=== PATIENT | male | born 1985 | race African-American/Black ===

== ENCOUNTER 2020-07-22 05:59 | Outpatient (REF) | payer BC, MEDICAID, SELFPAY | END 2020-07-22 06:00 | disposition home or self-care (01) | LOC: HO.LAB 05:59 | PROVIDERS: Visit Provider Internal Medicine | DX: Z20.822 Contact with and (suspected) exposure to COVID-19 (principal) | CPT/HCPCS: 36415; C9803; U0003 ==

== ENCOUNTER 2020-07-27 05:48 | Outpatient (REF) | payer BC, MEDICAID, SELFPAY | END 2020-07-27 05:49 | disposition home or self-care (01) | LOC: HO.LAB 05:48 | PROVIDERS: Visit Provider Internal Medicine | DX: Z20.822 Contact with and (suspected) exposure to COVID-19 (principal) | CPT/HCPCS: 36415; C9803; U0003 ==

== ENCOUNTER 2020-07-29 05:48 | Emergency (ER) | payer BC, MEDICAID, SELFPAY ==
--- NOTE | 2020-07-29 | XR_ITS ---
EXAMINATION: XR SHOULDER, RIGHT CLINICAL INFORMATION: Fall, shoulder injury COMPARISON: None TECHNIQUE: Four views of the right shoulder. FINDINGS: Glenohumeral alignment is anatomic. No acute fracture is seen. The acromioclavicular joint appears slightly widened. XR/XR shoulder RT min 2V IMPRESSION: Slightly widened appearance of the acromioclavicular joint, which could be chronic or could represent mild AC joint injury in the proper clinical setting. No fracture identified.
[2020-07-29 05:51] VITALS: BP 137/87; PULSE 58; RESP 16; TEMP 36.8; O2SAT 98; BMI 29.8
[2020-07-29 06:16] VITALS: BP 142/77; PULSE 57; RESP 16; TEMP 36.7; O2SAT 98
--- NOTE | 2020-07-29 06:19 | ED_ITS ---
HPI - Extremity Problem General Chief complaint: Extremity Injury, Upper Stated complaint: Shoulder pain/Fall Time Seen by Provider: 07/29/20 06:19 Source: patient Mode of arrival: ambulatory Limitations: no limitations History of Present Illness HPI Narrative: 34-year-old male who is left-handed fell 2 steps of stairs 2 days ago landed on his right shoulder, patient is able to move his shoulder but with pain only when he raises his right arm above his head, patient works for [employer] and get to carry boxes. Patient has no pain as long as he is not moving his shoulder. Related Data Allergies Allergy/AdvReac Type Severity Reaction Status Date / Time No Known Allergies Allergy Unverified 03/19/20 18:43 [No Known Allergies*] Review of Systems Review of Systems: All other systems are reviewed and are negative Constitutional: Reports as per HPI and Reports no additional constitutional complaints Eyes: Reports as per HPI and Reports no additional eye complaints Reports system reviewed and no additional complaints, except as documented Cardiovascular: Reports as per HPI and Reports no additional cardiovascular complaints Respiratory: Reports as per HPI and Reports no additional respiratory complaints Gastrointestinal: Reports as per HPI and Reports no additional gastrointestinal complaints Genitourinary: Reports no additional female genitourinary complaints Musculoskeletal: Reports no additional musculoskeletal complaints Skin/Breast: Reports system reviewed and no additional complaints, except as docu Psychiatric: Reports no additional psychiatric complaints Endocrine: Reports no additional endocrine complaints Hematologic/Lymphatic: Reports no additional hematologic/lymphatic complaints Allergic/Immunologic: Reports no additional allergic/immunologic complaints Reports system reviewed and no additional complaints, except as documented and Reports Abnormal speech present [facility] Past Medical History Medical History No known health problems Social History Social History Alcohol intake: current Alcohol intake frequency: a few times a month Smoking Status: Light tobacco smoker Smoked in Last 30 Days: Yes Use of substances other than those prescribed or required for medical reasons: No Advance Directives: No Physical Exam Vital Signs: Vital Signs: Last Vital Signs Temp 98.2 F 07/29/20 05:51 Pulse 58 07/29/20 05:51 Resp 16 07/29/20 05:51 BP 137/87 07/29/20 05:51 Pulse Ox 98 01/27/21 05:51 Body Mass Index 29.8 Vital signs have been reviewed as normal and appeared to be correct. Blood pressure is high. Heart rate normal. Respiration rate normal. Temperature normal. Oxygen saturation normal. Appearance: Alert. Oriented X3. No acute distress. Head: Normal external exam. Normocephalic. Atraumatic. No Damon signs noted. No raccoon eyes noted Eyes: PERRLA. EOMI. Conjunctiva and sclera normal. Eyelids normal. ENT: EAC normal. TM's Normal. Pharynx normal. Uvula midline. Moist mucous membranes. No trismus noted. No drooling noted. No muffled voice noted. Neck: Normal inspection. Neck supple. FROM. No adenopathy. Thyroid Normal. No meningeal signs. No neck mass noted. CVS: Normal heart rate and rhythm. Heart sound normal. No murmurs noted. Pulses normal throughout. Respiratory: No respiratory distress. Painless inspiration. Breath sounds normal. No wheezes/rales/rhonchi noted. Chest nontender. No accessory muscle usage noted or decreased air movement noted. Abdomen: Soft and nontender. Bowel sounds normal in all 4 quadrants. No distention noted. No organomegaly noted. No visible injury noted. Back: No CVA tenderness. Full range of motion noted. Skin: Skin warm and dry. Normal skin color. Normal skin turgor. No rashes/lesions/lacerations noted. Extremities: Left shoulder exam: Normal inspection, no deformity, held in abduction position, tender abduction above 30 degree, no tenderness to touch, neurovascularly intact on the left upper extremities. With cap refill less than 2 seconds. Neuro: Oriented X 3. No motor deficit. No sensory deficit. Reflexes normal. Course Course Course Narrative: Right shoulder injury 2 days ago, mild right AC separation, start the patient on sling, NSAIDs, follow up with Ortho. MDM - Extremity (Nontraumatic) Imaging Data Right shoulder x-ray: Radiologist's impression: Slightly widened appearance of the acromioclavicular joint, which could be chronic or could represent mild AC joint injury in the proper clinical setting. No fracture identified. Discharge Plan Discharge Clinical Impression: Acromioclavicular joint separation Patient Disposition: Home, Self-Care Instructions: Acromioclavicular Separation (ED) Additional Instructions: Take amqq-nsp-necmlzy ibuprofen 200 mg tablet every 6 hours if needed for pain. Referrals: Andre Grant MD [Physician] - 2 days
== END 2020-07-29 07:00 | disposition home or self-care (01) ==
PROVIDERS: Emergency Provider Emergency Medicine
DX: S43.101A Unspecified dislocation of right acromioclavicular joint, initial encounter (principal); M25.511 Pain in right shoulder; W18.30XA Fall on same level, unspecified, initial encounter; Y93.9 Activity, unspecified; Y92.9 Unspecified place or not applicable; Y99.9 Unspecified external cause status; F17.200 Nicotine dependence, unspecified, uncomplicated; Z71.6 Tobacco abuse counseling
CPT/HCPCS: 73030; 99283; 99284

== ENCOUNTER 2020-08-02 09:48 | Emergency (ER) | payer BC, MEDICAID, SELFPAY ==
--- NOTE | 2020-08-02 09:53 | ECG_ITS ---
Test Reason : SOB Blood Pressure : / mmHG Vent. Rate : 063 BPM Atrial Rate : 063 BPM P-R Int : 130 ms QRS Dur : 088 ms QT Int : 354 ms P-R-T Axes : 030 045 018 degrees QTc Int : 362 ms Normal sinus rhythm Early repolarization Normal ECG No previous ECGs available Referred By: Raghav Garcia Electronically Signed By:DEMETRIO JOHNSON MD
--- NOTE | 2020-08-02 09:57 | ED.CHESTPAIN ---
HPI - Chest Pain General Chief Complaint: Chest Pain Stated Complaint: CHEST PAIN Time Seen by Provider: 08/02/20 09:56 Source: patient Mode of arrival: ambulatory Limitations: no limitations History of Present Illness HPI narrative: Otherwise healthy 34-year-old male who presents with complaint of right-sided chest wall pain. States he was seen here 3 days ago he fell onto his right shoulder from a slip and fall and injured his right AC he is in a sling states at this time he denies any pain and several hours later he started having pain on the right-sided chest that is worse with palpation and movement. Prior episodes: No Pain location: right chest Pain radiation: none Severity: mild Quality: aching Context: trauma/injury (Two days ago fell onto the right shoulder and chest area) Treatment prior to arrival: none Related Data Previous Rx's Medication Instructions Recorded cyclobenzaprine 5 mg PO TID PRN #14 tab 08/02/20 lidocaine 1 patch TOPICAL Q24H PRN #10 ea 08/02/20 Allergies Allergy/AdvReac Type Severity Reaction Status Date / Time No Known Allergies Allergy Verified 08/02/20 10:17 [No Known Allergies*] Review of Systems Review of Systems: Constitutional: No Weight loss, No Fever, No Chills, No Night Sweats, No Fatigue, No Malaise ENT/Mouth: No Hearing loss, No Ear Pain, No Nasal Congestion, No Sinus Pain, No Hoarseness, No sore throat, No Rhinorrhea, No Swallowing Difficulty Eyes: No Eye Pain, No Swelling, No Redness, No Foreign Body, No Discharge, No Vision Changes Cardiovascular: No SOB, No Dyspnea on Exertion, No Orthopnea, No Edema, No Palpitations Respiratory: No Cough, No Sputum, No Wheezing, No Smoke Exposure, No Dyspnea Gastrointestinal: No Nausea, No Vomiting, No Diarrhea, No Constipation, No abdominal Pain, No Hematochezia, No Melena Genitourinary: No Dysuria, No Urinary Frequency, No Hematuria, No Urinary Incontinence, No Urgency, No Flank Pain Musculoskeletal: No joint pain, No Myalgias, No Joint Swelling, right-sided chest wall pain Skin: No Skin Lesions, No rash Neuro: No Weakness, No Numbness, No Paresthesias, No Loss of Consciousness, No Dizziness, No Headache Psych: No Social Issues Heme/Lymph: No Bruising, No Bleeding,No Lymphadenopathy Endocrine: No Polyuria, No Polydipsia, No Temperature Intolerance Yes all other systems are reviewed and are negative [facility] Past Medical History Medical History No known health problems Social History Social History Alcohol intake: current Alcohol intake frequency: a few times a month Smoking Status: Light tobacco smoker Advance Directives: No Advance Directives Information Provided: No Physical Exam Vital Signs: Vital Signs: Last Vital Signs Temp 98.6 F 08/02/20 10:16 Pulse 60 08/02/20 10:16 Resp 16 08/02/20 10:16 BP 136/74 08/02/20 10:16 Pulse Ox 99 08/02/20 10:16 Body Mass Index 28.5 Reviewed Const: General: cooperative and healthy appearing; No acute distress or intoxicated appearing Nutritional Appearance: average body habitus Orientation/consciousness: patient oriented x3 HENMT: Head: Yes normal to inspection Ears: hearing grossly normal bilaterally Eyes: General: appearance normal, both eyes and all related structures Visual Kidd: normal visual kidd by confrontation Neck: Neck: Yes normal visual inspection, No positive Brudzinski's sign, No positive Kernig's sign and No tender Thyroid: Thyroid normal Chest: Chest palpation & inspection: normal inspection of the chest, no crepitus and tenderness (Right-sided lateral chest) Resp: Effort & Inspection: normal respiratory effort Cardio: Jugular venous distension: no JVD GI: Inspection: Yes normal to inspection Percussion: Yes normal to percussion Auscultation: normal bowel sounds : General: Yes no CVA tenderness Back/Spine/Pelvis: Back: no CVA tenderness Skin: General skin exam: no rashes or lesions noted Neuro: General: patient oriented x3 Extrem: General: Yes normal to inspection MDM - Chest Pain MDM Narrative Medical decision making narrative: Well nontoxic appearing. AP exam consistent with contusions likes injury to the right upper chest wall. Rib series with PA negative. He has a shoulder sling for his right shoulder injury plans for follow-up with Orthopedics. Stable for discharge. Differential Diagnosis Differential diagnosis: Likely fracture of rib and costochondritis; Unlikely pneumothorax, stable angina, unstable angina pectoris, atypical chest pain, st elevation myocardial infarction, chest pain and biliary colic Imaging Data Right-sided rib with PA chest: Radiologist's impression: [id number] [place], [place] [id number] ReportSigned Patient: Travis Rodriguez#: [id number]: 1985Acct:[id number]/Sex: 34 / MADM Date: 08/02/20Loc: HO.EDAttending Dr: Ordering Physician: Raghav Garcia NP Date of Service: 08/02/20 Procedure(s): XR ribs RT min 3V w CXR1V Accession Number(s): [id number] cc: Raghav Garcia LOGISTICS ENGINEER~ EXAMINATION: XR RIBS, RIGHT CLINICAL INFORMATION: Status post fall COMPARISON: None TECHNIQUE: 3 views of the right ribs were obtained. Chest one view. FINDINGS: Lungs are clear. No consolidation, pneumothorax, or pleural effusion. The cardiomediastinal silhouette and pulmonary vasculature are normal. Osseous structures are unremarkable. Ribs are intact. No fractures are identified. XR/XR ribs RT min 3V w CXR1V IMPRESSION: Unremarkable chest examination. Dictated By:TAN ARIAS MDSigned By:<Electronically signed by TAN ARIAS MD in OV>08/02/20 1037 DD/ [id number]/TT: Advertising Account Manager: [facility] [place] ECG Data ECG #1: Interpretation: Normal sinus rhythm Rate 63 MN interval within normal limits No acute ST segment changes No previous Discharge Plan Discharge Clinical Impression: Chest wall contusion Patient Disposition: Home, Self-Care Instructions: Rib Contusion (ED) Additional Instructions: Warm compresses Take ibuprofen as prescribed Muscle relaxant as prescribed; no drinking alcohol or driving as this medication can make you sleepy and drowsy Gentle stretching Follow-up with the orthopedics as discussed for your shoulder Return if any concerns or worsening symptoms Thank you Prescriptions: New cyclobenzaprine 5 mg tablet 5 mg PO TID PRN (Reason: muscle spasm) Qty: 14 RF: 0 lidocaine 4 % adhesive patch,medicated 1 patch topical Q24H PRN (Reason: pain) Qty: 10 RF: 0 Referrals: Cate Bai MD [Physician] - 5 days Interventions: ED Discharge Assessment Last Done: 08/02/20 12:09 Discharge Date/Time: 08/02/20 12:11
[2020-08-02 10:16] VITALS: BP 136/74; PULSE 60; RESP 16; TEMP 37; O2SAT 99; BMI 28.5
== END 2020-08-02 12:11 | disposition home or self-care (01) ==
PROVIDERS: Emergency Provider Emergency Medicine
DX: S20.211A Contusion of right front wall of thorax, initial encounter (principal); R07.89 Other chest pain; F17.200 Nicotine dependence, unspecified, uncomplicated; W01.0XXA Fall on same level from slipping, tripping and stumbling without subsequent striking against object, initial encounter; Y93.9 Activity, unspecified; Y92.9 Unspecified place or not applicable; Y99.9 Unspecified external cause status; Z71.6 Tobacco abuse counseling; Z79.899 Other long term (current) drug therapy
CPT/HCPCS: 71101; 93005; 99283

== ENCOUNTER 2020-08-05 05:49 | Outpatient (REF) | payer BC, MEDICAID, SELFPAY | END 2020-08-05 05:50 | disposition home or self-care (01) | LOC: HO.LAB 05:49 | PROVIDERS: Visit Provider Internal Medicine | DX: Z20.822 Contact with and (suspected) exposure to COVID-19 (principal) | CPT/HCPCS: 36415; C9803; U0003; U0005 ==

== ENCOUNTER 2020-08-15 10:10 | Outpatient (REF) | payer BC, MEDICAID, SELFPAY | END 2020-08-15 10:11 | disposition home or self-care (01) | LOC: HO.LAB 10:10 | PROVIDERS: Visit Provider Internal Medicine | DX: Z20.822 Contact with and (suspected) exposure to COVID-19 (principal) | CPT/HCPCS: 36415; C9803; U0003; U0005 ==

== ENCOUNTER 2020-08-27 | Outpatient (REF) | payer BC, MEDICAID, SELFPAY ==
[2020-08-28 14:27] LABS: H Pylori Breath Test NOT DETECTED (NOT DETECTED)
== END 2020-08-27 00:01 | disposition home or self-care (01) ==
LOC: HO.LNP
PROVIDERS: Visit Provider Internal Medicine Gastroenterology
DX: Z11.0 Encounter for screening for intestinal infectious diseases (principal)
CPT/HCPCS: 83013

== ENCOUNTER → 2020-08-27 09:47 | Outpatient (BNVA) | payer BC, MEDICAID, SELFPAY | PROVIDERS: Visit Provider Internal Medicine Gastroenterology ==

== ENCOUNTER → 2020-10-06 09:58 | Outpatient (REF) | payer BC, MEDICAID, SELFPAY | LOC: HO.SL 09:58 | PROVIDERS: PCP Internal Medicine; Visit Provider Internal Medicine | DX: G47.33 Obstructive sleep apnea (adult) (pediatric) (principal); R06.83 Snoring; R40.0 Somnolence | CPT/HCPCS: 95806 ==

== ENCOUNTER 2020-10-30 08:27 | Outpatient (REF) | payer BC, MEDICAID, SELFPAY ==
[2020-10-30 11:13] LABS: MANUAL DIFF FLAG NO
[2020-10-30 11:39] LABS: Basophils Absolute Auto 0.1 X10*3/uL (0.0-0.2); Basophils Percent Auto 0.8 % (0-2); Eosinophils Absolute Auto 0.4 X10*3/uL (0.0-0.4); Eosinophils Percent Auto 5.7 % (0-4); Hematocrit 45.4 % (42-52); Imm Gran Abs Auto 0.02 X10*3/uL (0.00-0.03); Imm Gran Pct Auto 0.3 % (0.0-0.4); Lymphocytes Absolute Auto 2.7 X10*3/uL (1.2-4.9); Lymphocytes Percent Auto 41.9 % (20-40); Mean Corpuscular HGB Conc 30.8 g/dl (31.0-36.0); Mean Corpuscular Hemoglobin 25.2 pg (27.0-33.0); Mean Corpuscular Volume 81.8 fL (80-98); Mean Platelet Volume 10.7 fL (9.4-12.4); Monocytes Absolute Auto 0.7 X10*3/uL (0.1-1.2); Monocytes Percent Auto 11.2 % (2-11); Neutrophils Absolute Auto 2.6 X10*3/uL (2.0-8.3); Neutrophils Percent Auto 40.1 % (45-73); Platelet Count 282 X10*3/uL (160-400); Red Blood Count 5.55 X10*6/uL (4.60-5.80); Red Cell Distribution Width 16.1 % (11.0-16.0); White Blood Count 6.5 X10*3/uL (4.8-10.8)
[2020-10-30 11:59] LABS: Alanine Aminotransferase 14 U/L (0-40); Albumin Level 4.4 g/dL (3.5-5.0); Alkaline Phosphatase 65 U/L (39-117); Anion Gap 13 (12-20); Aspartate Amino Transferase 20 U/L (5-37); Bilirubin Total 1.5 mg/dL (0.0-1.0); Blood Urea Nitrogen 15 mg/dL (9-16); Calcium 9.6 mg/dL (8.4-10.2); Carbon Dioxide 28 mmol/L (22-29); Chloride 106 mmol/L (96-108); Cholesterol 125 mg/dL; Estimated Glomerular Filt Rate > 60; Glucose Fasting 95 mg/dL (60-99); HDL Cholesterol 43 mg/dL; LDL Cholesterol Calculated 74 mg/dl; Potassium 4.5 mmol/L (3.3-5.1); Sodium 142 mmol/L (135-145); Thyroid Stimulating Hormone 0.29 uIU/mL (0.32-4.0); Total Protein 7.1 g/dL (6.5-8.0); Triglycerides 40 mg/dL
== END 2020-10-30 08:28 | disposition home or self-care (01) ==
LOC: HO.LAB 08:27
PROVIDERS: PCP Internal Medicine; Visit Provider Internal Medicine
DX: Z00.00 Encounter for general adult medical examination without abnormal findings (principal); E03.9 Hypothyroidism, unspecified; E11.9 Type 2 diabetes mellitus without complications
CPT/HCPCS: 36415; 80053; 80061; 84443; 85025

== ENCOUNTER 2021-07-05 09:11 | Outpatient (REF) | payer MEDICAID, SELFPAY ==
[2021-07-05 10:03] LABS: COVID-19 Test Positive (Negative); IDNOW Serial# 55D5AD1C
== END 2021-07-05 09:12 | disposition home or self-care (01) ==
LOC: HO.LAB 09:11
PROVIDERS: Visit Provider Internal Medicine
DX: Z20.822 Contact with and (suspected) exposure to COVID-19 (principal)
CPT/HCPCS: 36415; 87635; C9803

== ENCOUNTER 2021-07-13 07:59 | Outpatient (REF) | payer MEDICAID, SELFPAY ==
[2021-07-13 09:07] LABS: Binax Internal Control QC Valid; Binax Now Covid-19 Ag Negative (Negative)
== END 2021-07-13 08:00 | disposition home or self-care (01) ==
LOC: HO.LAB 07:59
PROVIDERS: Visit Provider Internal Medicine
DX: Z20.822 Contact with and (suspected) exposure to COVID-19 (principal)
CPT/HCPCS: C9803

== ENCOUNTER 2022-05-13 10:36 | Outpatient (REF) | payer OTHER, SELFPAY ==
[2022-05-13 10:48] LABS: MANUAL DIFF FLAG NO
[2022-05-13 10:56] LABS: Basophils Absolute Auto 0.1 X10*3/uL (0.0-0.2); Eosinophils Absolute Auto 0.2 X10*3/uL (0.0-0.4); Eosinophils Percent Auto 3.8 % (0-4); Hematocrit 50.6 % (42.0-52.0); Lymphocytes Absolute Auto 2.3 X10*3/uL (1.2-4.9); Lymphocytes Percent Auto 39.9 % (20-40); Mean Corpuscular HGB Conc 33.6 g/dl (31.0-36.0); Mean Corpuscular Volume 86.2 fL (80.0-98.0); Monocytes Absolute Auto 0.6 X10*3/uL (0.1-1.2); Monocytes Percent Auto 9.5 % (2-11); Neutrophils Absolute Auto 2.7 x10*3/uL (2.0-8.3); Neutrophils Percent Auto 45.8 % (45-73); Platelet Count 209 X10*3/uL (160-400); Red Blood Count 5.87 X10*6/uL (4.60-5.80); Red Cell Distribution Width 12.9 % (11.0-16.0); White Blood Count 5.8 X10*3/uL (4.8-10.8)
[2022-05-13 11:25] LABS: Alanine Aminotransferase 17 U/L (0-40); Albumin Level 4.5 g/dL (3.5-5.0); Alkaline Phosphatase 56 U/L (39-117); Anion Gap 13 (12-20); Aspartate Amino Transferase 18 U/L (5-37); Bilirubin Total 1.9 mg/dL (0.0-1.0); Blood Urea Nitrogen 14 mg/dL (9-16); Calcium 9.7 mg/dL (8.4-10.2); Carbon Dioxide 28 mmol/L (22-29); Chloride 101 mmol/L (96-108); Cholesterol 119 mg/dL; Estimated Glomerular Filt Rate > 60; Glucose Fasting 98 mg/dL (60-99); HDL Cholesterol 41 mg/dL; LDL Cholesterol Calculated 70 mg/dl; Potassium 4.2 mmol/L (3.3-5.1); Sodium 138 mmol/L (135-145); Total Protein 7.2 g/dL (6.5-8.0); Triglycerides 44 mg/dL
[2022-05-13 11:48] LABS: Thyroid Stimulating Hormone 0.34 uIU/mL (0.32-4.0)
== END 2022-05-13 10:37 | disposition home or self-care (01) ==
LOC: HO.LAB 10:36
PROVIDERS: Visit Provider Internal Medicine
DX: Z13.0 Encounter for screening for diseases of the blood and blood-forming organs and certain disorders involving the immune mechanism (principal); E03.9 Hypothyroidism, unspecified; E78.5 Hyperlipidemia, unspecified; I10 Essential (primary) hypertension
CPT/HCPCS: 36415; 80053; 80061; 84443; 85025

== ENCOUNTER 2023-03-17 13:33 | Outpatient (AMB) | payer OTHER, SELFPAY ==
--- NOTE | 2023-03-17 13:34 | MHC.PC.OV ---
Vital Signs 03/17/23 13:35 Height 5 ft 11 in Weight 211 lb BMI 29.4 BP 112/68 Blood Pressure Location Lt brachial Position Sitting Pulse 63 Pulse Source Pulse Oximeter Pulse Oximetry (%) 98 Oxygen Delivery Method Room Air Intake Visit Reasons: PE Primary Teacher Required: No Web Page Developer: Not Required per policy Accompanied by: Self / Same As Patient Allergies No Known Allergies [No Known Allergies*] Allergy (Verified 03/17/23 13:35) Medication List - Last Reconciled 03/20/23 by Carroll Ozuna MD omeprazole 20 mg PO DAILY Tobacco use date assessed: 03/17/23 Dental Screening Dental Screen Date: 03/17/23 Did you have a dental visit in the last 12 months?: Yes Did you have a dental problem in the last 6 months where you did not have access to dental care?: No Was dental information given to patient?: Patient has dentist HPI PE HPI Details gerd on rx; doing well PFSH Medical History No known health problems Surgical History No history of previous surgery Family History Mother No problems noted. Father No problems noted. Social History Housing: House Alcohol intake: current Alcohol intake frequency: holidays/special occasions only Patient Tobacco Use Status: Current someday Tobacco user Tobacco use type: Cigarette Cigarettes Per Day: 3 e-Cigarette/Vaping Use: Never Used Second Hand Smoke Exposure: No service: No Current occupational status: employed Cognitive needs: No Hearing needs: No Vision needs: No Questionnaire PHQ-9 Over the last 2 weeks, how often have you been bothered by any of the following problems? 1. Little interest or pleasure in doing things: not at all 2. Feeling down, depressed, or hopeless: not at all 3. Trouble falling or staying asleep, or sleeping too much: not at all 4. Feeling tired or having little energy: not at all 5. Poor appetite or overeating: not at all 6. Feeling bad about yourself - or that you are a failure or have let yourself or your family down: not at all 7. Trouble concentrating on things, such as reading the newspaper or watching television: not at all 8. Moving or speaking so slowly that other people could have noticed. Or the opposite - being so fidgety or restless that you have been moving around a lot more than usual: not at all 9. Thoughts that you would be better off or of hurting yourself in some way: not at all Total score: 0 Depression Screening Interpretation: Negative 77181 - PHQ-9 Billing: Yes Source: Developed by Drs. Jefry Lazo, Crystal Kim, Vj Tony and colleagues, with an educational mary from [employer]. Thrive Questionnaire Date Thrive assessed: 03/17/23 I am a: Patient What is your living situation today?: I have a steady place to live Within the past 12 months, did the food you bought not last and you didn't have the money to get more?: Never true Within the past 12 months, did you worry whether your food would run out before you got money to buy more?: Never true Do you have trouble paying for medicines?: No Do you have trouble getting transportation to medical appointments?: No Do you have trouble paying your heating and electricity bill?: No Do you have trouble taking care of your child, family member or friend?: No Do you have trouble with day-to-day activities such as bathing, preparing meals, shopping, managing finances, etc.?: No Are you currently unemployed and looking for a job?: No Are you interested in more education?: No Please select the resources that you would like help with: None AUDIT C Alcohol Use Questionnaire (AUDIT-C) 1. How often do you have a drink containing alcohol?: Monthly or less 2. How many drinks containing alcohol do you have on a typical day when you are drinking?: 1 or 2 3. How often do you have six or more drinks on one occasion?: Never Total Score: 1 Score Reviewed/Action Taken: Yes BETO-7 AMB Questionnaire BETO-7 Date BETO - 7 assessed: 03/17/23 Feeling nervous, anxious, or on edge: 0 = Not at all Not being able to stop or control worryin = Not at all Worrying too much about different things: 0 = Not at all Trouble relaxin = Not at all Being so restless that it is hard to sit still: 0 = Not at all Becoming easily annoyed or irritable: 0 = Not at all Feeling afraid as if something awful might happen: 0 = Not at all Total BETO-7 score (0-4 normal; 5-9 mild; 10-14 moderate; 15-21 severe): 0 Source: Developed by Drs. Jefry Lazo, Crystal Kim, Vj Tony and colleagues, with an educational mary from [employer]. BETO-7 Assessment Billing BETO-7 Assessment Tool: BETO-7 Assessment 12417 Review of Systems Const Denies chills, Denies fatigue, Denies headache(s) and Denies weight loss Eyes Denies change in vision, Denies diplopia and Denies eye pain ENT Denies vertigo, Denies dizziness, Denies headache(s) and Denies nasal discharge Card Denies chest pain, Denies rapid heart rate and Denies dyspnea on exertion Resp Denies chest congestion, Denies cough, Denies pain with cough and Denies dyspnea on exertion GI Denies abdominal pain, Denies hematochezia and Denies change in bowel habits Musc Denies myalgias, Denies arthralgias and Denies joint swelling Skin/Breast Denies lesions and Denies unusual bruising Neuro Denies vertigo, Denies dizziness, Denies headache(s) and Denies focal weakness Endo Denies fatigue Physical exam (Primary Care) Vital Signs: Last Vital Signs Pulse 63 03/17/23 13:35 BP 112/68 03/17/23 13:35 Pulse Ox 98 03/17/23 13:35 Oxygen Delivery Method Room Air 03/17/23 13:35 BMI result Body Mass Index 29.4 Tobacco/Smoking Status: Tobacco use Status Tobacco use date assessed 03/17/23 03/17/23 13:40 Patient Tobacco Use Status Current someday Tobacco 03/17/23 13:40 Tobacco use type Cigarette 03/17/23 13:40 e-Cigarette/Vaping Use Never Used 03/17/23 13:40 PHQ-9: PHQ-9 Score PHQ-9: Total score 0 03/17/23 13:40 Depression Screening Interpretation: Negative Thrive Assessment: Date of Thrive Assessment Date Thrive assessed 03/17/23 03/17/23 13:40 Const General: cooperative, healthy appearing and no acute distress Orientation/consciousness: oriented to person, oriented to place and oriented to time HENMT Head: Yes normal to inspection, Yes normocephalic and Yes atraumatic Mouth: Normal oral and palatal mucosa present and tongue normal Throat: Yes posterior oropharynx normal and Yes uvula midline Eyes General: appearance normal, both eyes and all related structures Neck Neck: Yes normal visual inspection, Yes full ROM and Yes no lymphadenopathy Thyroid: Thyroid normal Carotids: normal carotid upstroke Chest Chest palpation & inspection: normal inspection of the chest Resp Effort & Inspection: normal respiratory effort and able to speak in complete sentences Auscultation: clear to auscultation bilaterally Cardio Jugular venous distension: no JVD Palpation: normal PMI Rate: regular rate Rhythm: regular rhythm Heart sounds: S1 normal heart sound present and S2 normal heart sound present GI Inspection: Yes normal to inspection Palpation (GI): Soft to palpation and No hepatosplenomegaly present Auscultation: normal bowel sounds General: Yes no CVA tenderness Back/Spine/Pelvis Back: no CVA tenderness Skin General skin exam: no rashes or lesions noted Neuro General: oriented to person, oriented to place and oriented to time Extrem General: Yes normal to inspection and Yes full ROM Assessment and Plan Assessment & Plan (1) Physical exam: Code(s): Z00.00 - Encounter for general adult medical examination without abnormal findings Plan: do labs Orders: Orders Lipid Panel 03/17/23 E78.5 - Hyperlipidemia, unspecified Complete Blood Count Auto Diff 03/17/23 D64.9 - Anemia, unspecified Comprehensive [place]. Panel Fast 03/17/23 N28.9 - Disorder of kidney and ureter, unspecified Medications: New omeprazole 20 mg PO DAILY 90 tabs 8RF Coding Level of Care Code Est Pt Prev Care 18-39y(41330) Diagnoses Physical exam Z00.00 Additional Codes BETO-7 Assessment Billing - BETO-7 Assessment Tool: BETO-7 Assessment 52606 ([id number])
[2023-03-17 13:35] VITALS: BP 112/68; PULSE 63; O2SAT 98; BMI 29.4
--- OUTSIDE RECORDS SUMMARY | 2023-03-17 13:35 | XMS_ITS | Patient Health Record ---
Author Name Unknown Organization [facility] Address [address] [place] [address] [phone] Care Team Providers Care Air Tool Operator Name Role Phone [facility], Nursing Unavailable [phone] ENCOUNTERS from 1985 to 2023-03-17 Encounter Location Date Provider Diagnosis [facility] [address] [place] [address] [phone] Aug, Nursing [facility] SOCIAL HISTORY Sex Assigned At : Social History Observation Description Sex Assigned At Unknown REASON FOR REFERRAL No Information REASON FOR VISIT No Information MENTAL STATUS No Information PLAN OF TREATMENT No Information
== END 2023-03-17 14:28 | disposition home or self-care (01) ==
PROVIDERS: PCP Internal Medicine; Visit Provider Internal Medicine
DX: Z00.00 Encounter for general adult medical examination without abnormal findings (principal)
CPT/HCPCS: 99395

== ENCOUNTER 2023-12-14 13:36 | Outpatient (AMB) | payer OTHER, SELFPAY ==
[2023-12-14 13:36] VITALS: BP 130/96; PULSE 76; O2SAT 98; BMI 27.1
--- NOTE | 2023-12-14 13:36 | A.OFFPC_ITS ---
Vital Signs 12/14/23 13:36 Height 5 ft 11 in Weight 194 lb 0.2 oz BMI 27.1 BP 130/96 H Blood Pressure Location Lt brachial Position Sitting Pulse 76 Pulse Source Pulse Oximeter Pulse Oximetry (%) 98 Oxygen Delivery Method Room Air Intake Visit Reasons: short tempered, adhd, difficulty focusing Poultryman Required: No Allergies No Known Allergies [No Known Allergies*] Allergy (Verified 12/14/23 13:37) Tobacco use date assessed: 12/14/23 Dental Screening Dental Screen Date: 03/17/23 HPI short tempered, adhd, difficulty focusing HPI Details treated for adhd as a child and feels he has it again; difficulty concentration, quick to anger, difficult holding a job PFSH Medical History No known health problems Surgical History No history of previous surgery Family History Mother No problems noted. Father No problems noted. Social History Housing: House Alcohol intake: current Alcohol intake frequency: holidays/special occasions only Patient Tobacco Use Status: Current someday Tobacco user Tobacco use type: Cigarette Cigarettes Per Day: 3 e-Cigarette/Vaping Use: Never Used Second Hand Smoke Exposure: No service: No Current occupational status: employed Cognitive needs: No Hearing needs: No Vision needs: No Questionnaire Thrive Questionnaire Date Thrive assessed: 03/17/23 BETO-7 AMB Questionnaire BETO-7 Date BETO - 7 assessed: 03/17/23 Source: Developed by Drs. Jefry Lazo, Crystal Kim, Vj Tony and colleagues, with an educational mary from [employer]. Review of Systems Const Denies chills, Denies headache(s) and Denies weight loss ENT Denies headache(s) Card Denies chest pain, Denies syncope, Denies irregular heart rhythm and Denies dyspnea Resp Denies chest congestion, Denies cough and Denies dyspnea GI Denies abdominal pain, Denies change in stool character, Denies nausea and Denies vomiting Musc Denies deformity and Denies joint swelling Neuro Denies syncope and Denies headache(s) Physical exam (Primary Care) Vital Signs: Last Vital Signs Pulse 76 12/14/23 13:36 BP 130/96 H 12/14/23 13:36 Pulse Ox 98 12/14/23 13:36 Oxygen Delivery Method Room Air 12/14/23 13:36 BMI result Body Mass Index 27.1 Tobacco/Smoking Status: Tobacco use Status Tobacco use date assessed 12/14/23 12/14/23 13:40 Patient Tobacco Use Status Current someday Tobacco 12/14/23 13:40 Tobacco use type Cigarette 12/14/23 13:40 e-Cigarette/Vaping Use Never Used 12/14/23 13:40 Thrive Assessment: Date of Thrive Assessment Date Thrive assessed 03/17/23 12/14/23 13:40 Const General: cooperative, comfortable, no acute distress and alert Neck Neck: Yes no lymphadenopathy Thyroid: Thyroid normal Resp Effort & Inspection: normal respiratory effort Auscultation: clear to auscultation bilaterally Percussion: percussion normal Cardio Jugular venous distension: no JVD Palpation: normal PMI Rate: regular rate Rhythm: regular rhythm Heart sounds: S1 normal heart sound present and S2 normal heart sound present GI Inspection: Yes normal to inspection Palpation (GI): No hepatosplenomegaly present Skin General skin exam: no rashes or lesions noted Extrem General: Yes no clubbing, cyanosis or edema Assessment and Plan Assessment & Plan (1) ADHD: Code(s): F90.9 - Attention-deficit hyperactivity disorder, unspecified type Plan: will ref to psych for diagnosis and rx options; seeking disability for this Orders: Referrals Psychiatry Outpatient Consultation Service F90.9 - Attention-deficit hyperactivity disorder, unspecified type Coding Level of Care Code Est Pt Level 3 (90916) Diagnoses ADHD F90.9
== END 2023-12-14 13:54 | disposition home or self-care (01) ==
PROVIDERS: PCP Internal Medicine; Visit Provider Internal Medicine
DX: F90.9 Attention-deficit hyperactivity disorder, unspecified type (principal)
CPT/HCPCS: 99213

== ENCOUNTER 2025-02-26 15:32 | Outpatient (AMB) | payer OTHER, SELFPAY ==
[2025-02-26 16:05] VITALS: BP 140/88; PULSE 74; TEMP 36.4; O2SAT 97; BMI 27.7
--- NOTE | 2025-02-26 16:05 | A.OFFPC_ITS ---
Vital Signs 02/26/25 16:05 Height 5 ft 11 in Weight 198 lb 8 oz BMI 27.7 BP 140/88 H Blood Pressure Location Lt brachial Position Sitting Pulse 74 Pulse Source Pulse Oximeter Temp 97.5 F Temp Source Temporal Artery Scan Pulse Oximetry (%) 97 Oxygen Delivery Method Room Air Intake Visit Reasons: BOY DR Rose Allergies No Known Allergies (No Known Allergies*) Allergy (Verified 02/26/25 16:33) Medication List - Last Reconciled 02/26/25 by Jonas Rose MD No Known Home Meds Tobacco use date assessed: 02/26/25 Dental Screening Dental Screen Date: 02/26/25 Did you have a dental visit in the last 12 months?: Yes Did you have a dental problem in the last 6 months where you did not have access to dental care?: No Was dental information given to patient?: Patient has dentist HPI BOY DR Rose HPI Details Patient comes in today for his follow-up visit - is transferring over from Dr. Ozuna, who retired from the practice a few months ago States that he feels okay and mainly needs to get a referral to see an eye doctor as his current prescription eyeglasses need to be updated Adds that Dr. Ozuna previously referred him somewhere to have him reassessed for his ADHD diagnosis but he has not heard back or received a call from anyone about an appointment being scheduled for him yet about this States that he would like to be referred to [facility], where he was going to see psychiatry before, to have his ADHD reevaluated and treated if necessary He denies any headaches or dizziness Denies any chest pains, no shortness of breath No nausea/vomiting, no abdominal pain No change in bowel habits noted [facility] [place] Medical History (Updated 02/27/25 @ 04:51 by Jonas Rose MD) Overweight (BMI 25.0-29.9) Smoker Hyperopia ADHD Surgical History No history of previous surgery Family History Mother No problems noted. Father No problems noted. Social History Housing: House Alcohol intake: current Alcohol intake frequency: holidays/special occasions only Patient Tobacco Use Status: Current someday Tobacco user Tobacco use type: Cigarette Cigarettes Per Day: 3 e-Cigarette/Vaping Use: Never Used Second Hand Smoke Exposure: No service: No Current occupational status: employed Cognitive needs: No Hearing needs: No Vision needs: Yes Questionnaire PHQ-9 Over the last 2 weeks, how often have you been bothered by any of the following problems? 1. Little interest or pleasure in doing things: not at all 2. Feeling down, depressed, or hopeless: more than half the days 3. Trouble falling or staying asleep, or sleeping too much: nearly every day 4. Feeling tired or having little energy: nearly every day 5. Poor appetite or overeating: nearly every day 6. Feeling bad about yourself - or that you are a failure or have let yourself or your family down: nearly every day 7. Trouble concentrating on things, such as reading the newspaper or watching television: not at all 8. Moving or speaking so slowly that other people could have noticed. Or the opposite - being so fidgety or restless that you have been moving around a lot more than usual: more than half the days 9. Thoughts that you would be better off or of hurting yourself in some way: not at all Total score: 16 Depression Screening Interpretation: Positive Depression Screening Follow-up: Follow-up Visit Requested Depression Screening Done: Yes [id number] - PHQ-9 Billing: Yes Source: Developed by Drs. Jefry Lazo, Crystal Kim, Vj Tony and colleagues, with an educational mary from [email or web address]. Thrive Questionnaire Date Thrive assessed: 02/26/25 I am a: Patient What is your living situation today?: I choose not to answer this question Within the past 12 months, did the food you bought not last and you didn't have the money to get more?: I choose not to answer this question Within the past 12 months, did you worry whether your food would run out before you got money to buy more?: I choose not to answer this question Do you have trouble paying for medicines?: No Do you have trouble getting transportation to medical appointments?: No Do you have trouble paying your heating and electricity bill?: I choose not to answer this question Do you have trouble taking care of your child, family member or friend?: Yes Do you have trouble with day-to-day activities such as bathing, preparing meals, shopping, managing finances, etc.?: No Are you currently unemployed and looking for a job?: Yes Are you interested in more education?: No Please select the resources that you would like help with: Housing/Snf Currently or been in a relationship where the following occur: I choose not to answer THRIVE Score: 0 AUDIT C Alcohol Use Questionnaire (AUDIT-C) 1. How often do you have a drink containing alcohol?: Monthly or less 2. How many drinks containing alcohol do you have on a typical day when you are drinking?: 1 or 2 3. How often do you have six or more drinks on one occasion?: Never Total Score: 1 Score Reviewed/Action Taken: Yes BETO-7 AMB Questionnaire BETO-7 Date BETO - 7 assessed: 02/26/25 Feeling nervous, anxious, or on edge: 2 = More than half the days Not being able to stop or control worryin = Nearly every day Worrying too much about different things: 3 = Nearly every day Trouble relaxin = Nearly every day Being so restless that it is hard to sit still: 3 = Nearly every day Becoming easily annoyed or irritable: 2 = More than half the days Feeling afraid as if something awful might happen: 2 = More than half the days Total BETO-7 score (0-4 normal; 5-9 mild; 10-14 moderate; 15-21 severe): 18 Source: Developed by Drs. Jefry Lazo, Crystal Kim, Vj Tony and colleagues, with an educational mary from [email or web address]. BETO-7 Assessment Billing BETO-7 Assessment Tool: BETO-7 Assessment 11593 Review of Systems Const Denies chills, Denies fatigue, Denies fever(s) and Denies headache(s) Eyes Reports change in vision (needs to have eyeglass prescription updated) ENT Denies dysphagia, Denies dizziness, Denies otalgia, Denies headache(s), Denies neck pain, Denies odynophagia and Denies sore throat Card Denies chest pain, Denies palpitations and Denies dyspnea Resp Denies cough and Denies dyspnea GI Denies abdominal pain, Denies constipation, Denies dysphagia, Denies heartburn, Denies diarrhea, Denies nausea, Denies odynophagia and Denies vomiting Denies difficulty urinating, Denies dysuria, Denies nocturia and Denies urinary frequency Musc Denies back pain and Denies neck pain Neuro Denies dizziness and Denies headache(s) Psych Reports difficulty concentrating Endo Denies fatigue and Denies palpitations Physical exam (Primary Care) Vital Signs: Last Vital Signs Temp 97.5 F 02/26/25 16:05 Pulse 74 02/26/25 16:05 BP 140/88 H 02/26/25 16:05 Pulse Ox 97 02/26/25 16:05 Oxygen Delivery Method Room Air 02/26/25 16:05 BMI result Body Mass Index 27.7 Tobacco/Smoking Status: Tobacco use Status Tobacco use date assessed 02/26/25 02/26/25 16:10 Patient Tobacco Use Status Current someday Tobacco 02/26/25 16:05 Tobacco use type Cigarette 02/26/25 16:05 e-Cigarette/Vaping Use Never Used 02/26/25 16:05 PHQ-9: PHQ-9 Score PHQ-9: Total score 16 02/26/25 16:41 Depression Screening Interpretation: Positive Depression Screening Follow-up: Follow-up Visit Requested Thrive Assessment: Date of Thrive Assessment Date Thrive assessed 02/26/25 02/26/25 16:10 Currently or been in a relationship where the following occur: I choose not to answer Const General: no acute distress and alert HENMT Throat: Yes posterior oropharynx normal and Yes tonsils normal (no TP congestion) Neck Neck: Yes supple and No lymphadenopathy Thyroid: Thyroid normal Resp Auscultation: clear to auscultation bilaterally, no rales and no wheezes Cardio Rate: regular rate Rhythm: regular rhythm Heart sounds: no murmurs GI Palpation (GI): Soft to palpation and nontender Auscultation: normal bowel sounds General: Yes no CVA tenderness Back/Spine/Pelvis Back: no CVA tenderness Thoracic/Lumbar Spine: No lumbar spinal tenderness Skin Rashes: no rashes Extrem General: Yes no clubbing, cyanosis or edema Coding Level of Care Code Est Pt Level 4 (55303) Diagnoses Hyperopia of both eyes H52.03 Laterality: bilateral Attention deficit hyperactivity disorder (ADHD), unspecified ADHD type F90.9 Attention deficit-hyperactivity disorder type: unspecified Smoker F17.200 Overweight (BMI 25.0-29.9) E66.3 Additional Codes BETO-7 Assessment Billing - BETO-7 Assessment Tool: BETO-7 Assessment 83737 ([id number]) PHQ-9 - 20924 - PHQ-9 Billing: Yes ([id number]) Assessment & Plan Assessment & Plan (1) Hyperopia: Code(s): H52.00 - Hypermetropia, unspecified eye Category: Medical Qualifiers: Laterality: bilateral Qualified Code(s): H52.03 - Hypermetropia, bilateral Plan: Will refer patient to ophthalmology for further evaluation and management (2) ADHD: Code(s): F90.9 - Attention-deficit hyperactivity disorder, unspecified type Category: Medical Qualifiers: Attention deficit-hyperactivity disorder type: unspecified Qualified Code(s): F90.9 - Attention-deficit hyperactivity disorder, unspecified type Plan: Will refer patient to psychiatry at [facility], per his request, for jerry ssessment/reevaluation of his ADHD (3) Smoker: Code(s): F17.200 - Nicotine dependence, unspecified, uncomplicated Category: Social Hx Plan: Patient is counseled on complete smoking cessation (4) Overweight (BMI 25.0-29.9): Code(s): E66.3 - Overweight Category: Medical Plan: Discussed diet/exercise as tolerated/lose weight Plan To return as scheduled in May 2025 for his annual physical examination Patient is instructed to try getting his labs done BEFORE he comes in for his annual exam Orders: Orders Comprehensive Micro. Panel Fast 05/17/25 E78.00 - Pure hypercholesterolemia, unspecified, Z00.00 - Encounter for general adult medical examination without abnormal findings Lipid Panel 05/17/25 E78.00 - Pure hypercholesterolemia, unspecified, Z00.00 - Encounter for general adult medical examination without abnormal findings UA CC w/rflx Micro + Cult 05/17/25 R30.0 - Dysuria, Z00.00 - Encounter for general adult medical examination without abnormal findings Complete Blood Count Auto Diff 05/17/25 D64.9 - Anemia, unspecified, Z00.00 - Encounter for general adult medical examination without abnormal findings TSH reflex Free T4 05/17/25 E78.00 - Pure hypercholesterolemia, unspecified, Z00.00 - Encounter for general adult medical examination without abnormal findings Vitamin D 25-OH Total 05/17/25 E55.9 - Vitamin D deficiency, unspecified, Z00.00 - Encounter for general adult medical examination without abnormal findings Referrals Ophthalmology Referral H52.00 - Hypermetropia, unspecified eye Psychiatry Referral F90.9 - Attention-deficit hyperactivity disorder, unspecified type
== END 2025-02-26 16:44 | disposition home or self-care (01) ==
PROVIDERS: PCP Internal Medicine; Visit Provider Internal Medicine
DX: H52.03 Hypermetropia, bilateral (principal); F90.9 Attention-deficit hyperactivity disorder, unspecified type; F17.200 Nicotine dependence, unspecified, uncomplicated; E66.3 Overweight

== ENCOUNTER → 2025-02-26 15:32 | Outpatient (BNVA) | payer OTHER, SELFPAY | PROVIDERS: PCP Internal Medicine; Visit Provider Internal Medicine | DX: H52.03 Hypermetropia, bilateral (principal); F90.9 Attention-deficit hyperactivity disorder, unspecified type; E66.3 Overweight; R30.0 Dysuria; E78.00 Pure hypercholesterolemia, unspecified; D64.9 Anemia, unspecified; E55.9 Vitamin D deficiency, unspecified; F17.210 Nicotine dependence, cigarettes, uncomplicated | CPT/HCPCS: 96127; 99212 ==